=== PATIENT | female | born 2005 | race Caucasian/White ===

== ENCOUNTER 2024-04-09 22:18 | Emergency (ER) | payer OTHER, SELFPAY ==
[2024-04-09 22:25] VITALS: BP 116/72; PULSE 90; TEMP 37.1; O2SAT 98; BMI 20.8
--- NOTE | 2024-04-09 22:27 | ED.GENADUL1 ---
HPI HPI - General Adult General Chief complaint: Headache Stated complaint: MIGRAINE, VOMITING, DIFF BREATHING Time Seen by Provider: 04/09/24 22:22 History of Present Illness HPI narrative: 18-year-old female presents for headache. She gets headaches frequently when she is about to start her period or on her period but that is not the case today. There was no trauma fever or stiff neck and a generalized headache. No localized weakness or vomiting but she has been nauseous. Related Data Previous Rx's ?Medication ?Instructions ?Recorded aujzmqaqpd-atwgvfagpzejo-bvtxrstn 1 cap PO Q6H PRN pain 5 days #20 04/10/24 50 mg-300 mg-40 mg capsule caps (Fioricet) Allergies Allergy/AdvReac Type Severity Reaction Status Date / Time No Known Drug Allergies Allergy Verified 04/09/24 22:29 Opioid HPI Opioid Management Most Recent Opioid Data: No Data to Display Review of Systems ROS Narrative A ten point review of systems is negative except as noted above. Exam Narrative Exam Narrative: Nurses note and vital signs reviewed and patient is not hypoxic. General: The patient appears well and in no apparent distress. Patient is resting comfortably on cart. Skin: Warm, dry, no pallor noted. There is no rash noted. Head: Normocephalic, atraumatic Eye: Normal conjunctiva, no drainage, EOMI. PERRL Ears, Nose, Mouth, and Throat: oral mucosa is moist. Nares patent. Cardiovascular: Regular Rate and Rhythm Respiratory: Patient is in no distress, no accessory muscle use, lungs are clear to auscultation, no wheezing, rales or rhonchi Back: non-tender GI: Soft and nontender Musculoskeletal: The patient has no evidence of calf tenderness, no pitting edema, symmetrical pulses noted bilaterally Neurological: Awake alert and oriented. Upper and lower extremity strength intact. No nuchal rigidity. Psychiatric: Cooperative Constitutional Vital Signs, click to edit/add: Last Vital Signs Temp 98.7 F 04/09/24 22:25 Pulse 90 04/09/24 22:25 Resp 16 04/09/24 22:25 BP 116/72 04/09/24 22:25 Pulse Ox 98 04/09/24 22:25 O2 Del Method Room Air 04/09/24 22:25 Course Vital Signs Vital signs: Vital Signs Temperature 98.7 F 04/09/24 22:25 Pulse Rate 90 04/09/24 22:25 Respiratory Rate 16 04/09/24 22:25 Blood Pressure 116/72 04/09/24 22:25 Pulse Oximetry 98 04/09/24 22:25 Oxygen Delivery Method Room Air 04/09/24 22:25 Temperature 98.7 F 04/09/24 22:25 Pulse Rate 90 04/09/24 22:25 Respiratory Rate 16 04/09/24 22:25 Blood Pressure 116/72 04/09/24 22:25 Pulse Oximetry 98 04/09/24 22:25 Oxygen Delivery Method Room Air 04/09/24 22:25 Medical Decision Making MDM Narrative Medical decision making narrative: Her workup including blood work and CAT scan of the brain is negative. She is feeling improved after being given IV Toradol, Solu-Medrol, and Zofran. She will be discharged home with a prescription for Fioricet. Treatment diagnosis and follow-up were discussed with the patient and her mother. Differential Diagnosis Differential Diagnosis: Migraine headache, tension headache, nonspecific headache, intracranial hem Lab Data Lab results reviewed: Yes I reviewed the patient's lab results Labs: Lab Results 04/09/24 Range/Units 22:45 WBC 5.8 (4.0-11.0) 10^3/uL RBC 4.17 L (4.20-5.40) 10^6/uL Hgb 11.9 L (12.0-16.0) g/dL Hct 36.0 (36.0-48.0) % MCV 86.3 (81.0-99.0) fL MCH 28.5 (26.7-34.0) pg MCHC 33.1 (29.9-35.2) g/dL RDW 12.7 (11.0-15.0) % Plt Count 221 (150-450) 10^3/uL MPV 10.5 (9.5-13.5) fL Neut % (Auto) 72.9 (43.0-75.0) % Lymph % (Auto) 20.3 L (20.5-60.0) % Taliaferro % (Auto) 5.9 (1.7-12.0) % Eos % (Auto) 0.2 L (0.9-7.0) % Baso % (Auto) 0.5 (0.2-2.0) % Neut # (Auto) 4.2 (1.4-6.5) 10^3/uL Lymph # (Auto) 1.2 (1.2-3.8) 10^3/uL Taliaferro # (Auto) 0.3 (0.3-0.8) 10^3/uL Eos # (Auto) 0.0 (0.0-0.7) 10^3/uL Baso # (Auto) 0.0 (0.0-0.1) 10^3/uL Abs Immat Gran (auto) 0.01 (0.00-0.03) 10^3/uL Imm/Tot Granulo (auto) 0.2 (0.0-0.5) % Sodium 136 (136-145) mmol/L Potassium 3.3 L (3.5-5.1) mmol/L Chloride 101 (98-107) mmol/L Carbon Dioxide 27.9 (21.0-32.0) mmol/L Anion Gap 10.4 BUN 8.0 (7.0-18.0) mg/dL Creatinine 0.56 (0.55-1.02) mg/dL Est GFR ( Amer) >60 (>=60) Est GFR (Non-Af Amer) >60 (>=60) BUN/Creatinine Ratio 14.3 Glucose 97 (74-106) mg/dL Calcium 8.8 (8.5-10.1) mg/dL Serum HCG, Qual Negative (NEGATIVE) Imaging Data CT scan - head: Radiologist's impression: ITS Impressions Head CT 04/09/24 22:34 IMPRESSION: 1. No acute intracranial abnormality. No hemorrhage or mass effect. Electronically authenticated by: QUINN BERNARDO Date: 04/10/2024 00:52 Discharge Plan Discharge Stand Alone Forms: Portal Instructions Chief Complaint: Headache Clinical Impression: Headache Patient Disposition: Home, Self-Care Time of Disposition Decision: 00:59 Condition: Good Mode of Transportation: Private Vehicle Prescriptions / Home Meds: New ofnkldvqlm-maijowyzjuzwe-khtn [Fioricet] 50-300-40 mg capsule 1 cap PO Q6H PRN (Reason: pain) 5 Days Qty: 20 0RF Print Language: Yoruba Instructions: Acute Headache (ED) Referrals: Physician,Non-Staff, [Physician] - 1 week
--- NOTE | 2024-04-09 22:34 | CT_ITS ---
The [address] [address] Patient Name: IVÁN PEDRAZA MRN: [id number] date: 2005 Sex: F Assigned Patient Location: ER Current Patient Location: ED.[facility] Accession/Order Number: [id number] Exam Date: 04/09/2024 23:28 Report Date: 04/10/2024 00:52 At the request of: DORCAS JIMÉNEZ Procedure: CT head/brain wo con EXAM: CT head/brain wo con INDICATION: 18 years old; Female. Headache and vomiting since this morning. Blurred vision. Pain behind eyes. History of migraine. TECHNIQUE: CT Head (ax/cor/sag reformats). Ionizing radiation dose reduced via iterative reconstruction/FBP blend and body size kV/mA adjustment. Comparison: None FINDINGS: POSTOPERATIVE CHANGES: None. BRAIN PARENCHYMA: No intraparenchymal or extra-axial hemorrhage. No mass effect. No midline shift or herniation. Normal betancourt/white differentiation. VENTRICLES/EXTRA-AXIAL SPACES: Normal for patient's age. SINUSES/MASTOIDS: The sinuses are not completely included. The visualized sinuses are clear. Mastoids and middle ears are clear. MSK: No displaced or depressed calvarial fracture. OTHER: No hyperdense intraluminal thrombus. CT/CT head/brain wo con IMPRESSION: 1. No acute intracranial abnormality. No hemorrhage or mass effect. Electronically authenticated by: QUINN BERNARDO Date: 04/10/2024 00:52
[2024-04-09 22:59] LABS: Basophils Percent Auto 0.5 % (0.2-2.0); Eosinophils Percent Auto 0.2 % (0.9-7.0); Hemoglobin 11.9 g/dL (12.0-16.0); Immature Granulocytes Abs Auto 0.01 10^3/uL (0.00-0.03); Immature Granulocytes Pct Auto 0.2 % (0.0-0.5); Lymphocytes Absolute Auto 1.2 10^3/uL (1.2-3.8); Lymphocytes Percent Auto 20.3 % (20.5-60.0); Mean Corpuscular HGB Conc 33.1 g/dL (29.9-35.2); Mean Corpuscular Hemoglobin 28.5 pg (26.7-34.0); Mean Corpuscular Volume 86.3 fL (81.0-99.0); Mean Platelet Volume 10.5 fL (9.5-13.5); Monocytes Absolute Auto 0.3 10^3/uL (0.3-0.8); Monocytes Percent Auto 5.9 % (1.7-12.0); Neutrophils Absolute Auto 4.2 10^3/uL (1.4-6.5); Neutrophils Percent Auto 72.9 % (43.0-75.0); Platelet Count 221 10^3/uL (150-450); Red Blood Count 4.17 10^6/uL (4.20-5.40); Red Cell Distribution Width 12.7 % (11.0-15.0); White Blood Count 5.8 10^3/uL (4.0-11.0)
[2024-04-09] MEDS: ONDANSETRON PF 4 MG/2 ML VIAL IV (23:00)
[2024-04-09] MEDS: KETOROLAC TROMETHAMINE 30 MG/ML VIAL IVP (23:01)
[2024-04-09] MEDS: METHYLPREDNISOLONE SOD SUCC PF 125 MG/2 ML VIAL IVP (23:02)
[2024-04-09 23:06] LABS: Anion Gap 10.4; BUN Creatinine Ratio 14.3; Calcium 8.8 mg/dL (8.5-10.1); Carbon Dioxide 27.9 mmol/L (21.0-32.0); Chloride 101 mmol/L (98-107); Estimated GFR (African America >60 (>=60); Estimated GFR (Non-African Ame >60 (>=60); Glucose 97 mg/dL (74-106); Potassium 3.3 mmol/L (3.5-5.1); Sodium 136 mmol/L (136-145)
[2024-04-09 23:11] LABS: HCG Qualitative NEGATIVE (NEGATIVE); Internal Control Within Normal Limits
[2024-04-10 01:09] VITALS: BP 102/66; PULSE 66; O2SAT 96
== END 2024-04-10 01:10 | disposition home or self-care (01) ==
PROVIDERS: Emergency Provider Emergency Medicine; PCP Family Medicine
DX: R51.9 Headache, unspecified (principal)
CPT/HCPCS: 36415; 70450; 80048; 84703; 85025; 96374; 96375; 99284; J1885; J2405; J2919